=== PATIENT | male | born 1960 | race Caucasian/White ===

== ENCOUNTER 2019-02-10 07:30 | Outpatient (RCR) | payer OTHER, SELFPAY | END 2019-02-10 23:59 | disposition home or self-care (01) | LOC: ANHAUDIO 07:30 | DX: Z46.1 Encounter for fitting and adjustment of hearing aid (principal) | CPT/HCPCS: 99199; V5160; V5261 ==

== ENCOUNTER 2019-09-29 07:26 | Outpatient (RCR) | payer OTHER, SELFPAY | END 2019-09-29 23:59 | disposition home or self-care (01) | LOC: ANHAUDIO 07:26 | DX: Z46.1 Encounter for fitting and adjustment of hearing aid (principal) | CPT/HCPCS: 99199 ==

== ENCOUNTER 2020-12-09 10:29 | Outpatient (RCR) | payer OTHER, SELFPAY | END 2020-12-09 23:59 | disposition home or self-care (01) | LOC: ANHAUDIO 10:29 | DX: Z46.1 Encounter for fitting and adjustment of hearing aid (principal) | CPT/HCPCS: 99199 ==